=== PATIENT | male | born 1960 | race Caucasian/White ===

== ENCOUNTER 2018-12-14 11:21 | Emergency (ER) | payer MEDICARE, MEDICAID ==
[~2018-12-14] VITALS: Ht 172.7 cm; Wt 120.2 kg
[2018-12-14 11:30] VITALS: BP 129/67
--- NOTE | 2018-12-14 11:30 | NUR ---
ED Nurse Note: pt walked in to ED with spouse due to SOB for last few weeks. pt has hx of asthma. clear breathing sounds noted on upper lobes and more diminished on lower lobes. respirations even and non-labored noted. intermitten cough with yellow sputum reported. no fever or chills noted. skin warm to touch. no open wound noted. AAO x4. on installer technician. bradycardia noted. will wait for the further order.
[2018-12-14] MEDS ORDERED: Ipratropium 0.02% Inh Soln 2.5ml UD HHN ONE (11:45)
[2018-12-14] MEDS ORDERED: Solu-MEDROL 125mg Inj IVP ONE (11:45)
[2018-12-14] MEDS: Albuterol ud Inhalation HHN SCH ×2 (12:01→12:26)
--- NOTE | 2018-12-14 12:12 | NUR ---
ED Nurse Note: flu swab ua blood sent down to lab
[2018-12-14 12:27] LABS: ANION GAP 12 mmol/L (5-15); BLOOD UREA NITROGEN 15 mg/dL (7-18); CARBON DIOXIDE 23 MMOL/L (21-32); CHLORIDE 104 MMOL/L (98-107); CREATININE 1.3 MG/DL (0.55-1.30); SODIUM 139 MMOL/L (136-145)
[2018-12-14 12:38] LABS: ALANINE AMINOTRANSFERASE 44 U/L (12-78); ALBUMIN 3.7 G/DL (3.4-5.0); ALBUMIN/GLOBULIN RATIO 1.1 (1.0-2.7); ALKALINE PHOSPHATASE 37 U/L (46-116); ASPARTATE AMINO TRANSFERASE 25 U/L (15-37); BILIRUBIN,TOTAL 0.5 MG/DL (0.2-1.0); CREATINE KINASE 401 U/L (26-308)
[2018-12-14 13:05] LABS: APPEARANCE,URINE CLEAR; BILIRUBIN, URINE NEGATIVE (NEGATIVE); GLUCOSE, URINE (UA) NEGATIVE (NEGATIVE); KETONES,URINE NEGATIVE (NEGATIVE); LEUKOCYTE ESTERASE ,URINE 1+ (NEGATIVE); NITRITE,URINE NEGATIVE (NEGATIVE); PH,URINE 6 (4.5-8.0); PROTEIN,URINE NEGATIVE (NEGATIVE); UROBILINOGEN,URINE NORMAL MG/DL (0.0-1.0)
[2018-12-14 13:07] LABS: COLOR,URINE YELLOW
--- NOTE | 2018-12-14 13:23 | Emergency Room Report ---
History of Present Illness General Chief Complaint: Dyspnea/Respdistress Source: Patient Present Illness HPI Patient presents with one week of worsening dyspnea and productive cough. He denies any fevers. Is a history of asthma and has been using his inhaler at least 3-4 puffs many times at night. He usually has a nebulizer however it's not working at this time. When he got this way last year he had to be admitted to the hospital for 7 days. He has chest pain when he coughs but otherwise does not have chest pain. There is no exertional chest pain. Patient denies any orthopnea, edema or calf tenderness. He is coughing up yellow phlegm without blood No nausea vomiting diarrhea dysuria rashes headache weakness. Last seizure 5 months ago. The patient takes Dilantin. History of hypertension. On metoprolol Allergies: Coded Allergies: No Known Allergies (Unverified , 12/14/18) Patient History Past Medical History: see triage record Social History: Denies: smoking Social History Narrative Reviewed Nursing Documentation: PMH: Agreed; PSxH: Agreed Nursing Documentation-PMH Past Medical History: No History, Except For Hx Hypertension: Yes Hx Asthma: Yes Hx Seizures: Yes Review of Systems All Other Systems: negative except mentioned in HPI Physical Exam Vital Signs Date Time Temp Pulse Resp B/P (MAP) Pulse Ox O2 Delivery O2 Flow Rate FiO2 12/14/18 11:22 98.1 48 16 125/84 96 Room Air 12/14/18 11:50 21 Sp02 EP Interpretation: reviewed, normal General Appearance: well appearing, no apparent distress, GCS 15 Head: normocephalic, atraumatic Eyes: bilateral eye normal inspection, bilateral eye PERRL ENT: normal pharynx, normal voice, moist mucus membranes Neck: supple Respiratory: wheezing, expiration Cardiovascular #1: no edema, bradycardia Cardiovascular #2: 2+ radial (R) Gastrointestinal: normal inspection, normal bowel sounds, non tender, no mass, non-distended, overweight Musculoskeletal: back normal, gait/station normal, normal range of motion, no calf tenderness Neurologic: alert, oriented x3, grossly normal Psychiatric: mood/affect normal Skin: normal inspection, warm/dry Medical Decision Making Diagnostic Impression: Primary Impression: Asthma exacerbation Qualified Codes: J45.41 - Moderate persistent asthma with (acute) exacerbation Additional Impression: Bradycardia ER Course Patient presents with 1 week of worsening dyspnea. Differential includes acute myocardial infarction, congestive heart failure, pneumonia, asthmatic bronchitis amongst others. There is no evidence of pulmonary embolus at this time. Evaluation will be with EKG, chest x-ray and labs. The patient will be treated with breathing treatments, Solu Medrol and cardiac observation. EKG with bradycardia without injury. Chest x-ray no infiltrates. CBC with normal white count. CMP unremarkable. Troponin negative. Clinically patient tolerates bradycardia without difficulty. Patient is improved with treatment. Discussed bradycardia and the need to discuss this with his primary physician. Late request to check Dilantin level. Dilantin level is low. Attempt to contact patient unsuccessful due to nonworking number. Laboratory Tests Test 12/14/18 12:03 White Blood Count 7.1 K/UL (4.8-10.8) Red Blood Count 5.09 M/UL (4.70-6.10) Hemoglobin 15.0 G/DL (14.2-18.0) Hematocrit 46.0 % (42.0-52.0) Mean Corpuscular Volume 90 FL (80-99) Mean Corpuscular Hemoglobin 29.4 PG (27.0-31.0) Mean Corpuscular Hemoglobin Concent 32.6 G/DL (32.0-36.0) Red Cell Distribution Width 11.4 % (11.6-14.8) L Platelet Count 300 K/UL (150-450) Mean Platelet Volume 5.3 FL (6.5-10.1) L Neutrophils (%) (Auto) 55.4 % (45.0-75.0) Lymphocytes (%) (Auto) 33.2 % (20.0-45.0) Monocytes (%) (Auto) 8.6 % (1.0-10.0) Eosinophils (%) (Auto) 0.9 % (0.0-3.0) Basophils (%) (Auto) 1.9 % (0.0-2.0) Prothrombin Time 10.8 SEC (9.30-11.50) Prothrombin Time INR 1.0 (0.9-1.1) PTT 25 SEC (23-33) Urine Color Yellow Urine Appearance Clear Urine pH 6 (4.5-8.0) Urine Specific [place] 1.020 (1.005-1.035) Urine Protein Negative (NEGATIVE) Urine Glucose (UA) Negative (NEGATIVE) Urine Ketones Negative (NEGATIVE) Urine Blood Negative (NEGATIVE) Urine Nitrite Negative (NEGATIVE) Urine Bilirubin Negative (NEGATIVE) Urine Urobilinogen Normal MG/DL (0.0-1.0) Urine Leukocyte Esterase 1+ (NEGATIVE) H Urine RBC 0 /HPF (0 - 0) Urine WBC 0-2 /HPF (0 - 0) Urine Squamous Epithelial Cells Occasional /LPF Urine Bacteria None /HPF (NONE) Sodium Level 139 MMOL/L (136-145) Potassium Level 4.0 MMOL/L (3.5-5.1) Chloride Level 104 MMOL/L (98-107) Carbon Dioxide Level 23 MMOL/L (21-32) Anion Gap 12 mmol/L (5-15) Blood Urea Nitrogen 15 mg/dL (7-18) Creatinine 1.3 MG/DL (0.55-1.30) Estimate Glomerular Filtration Rate 56.9 mL/min (>60) Glucose Level 110 MG/DL (74-106) H Lactic Acid Level 1.20 mmol/L (0.4-2.0) Calcium Level 9.0 MG/DL (8.5-10.1) Total Bilirubin 0.5 MG/DL (0.2-1.0) Aspartate Amino Transferase (AST) 25 U/L (15-37) Alanine Aminotransferase (ALT) 44 U/L (12-78) Alkaline Phosphatase 37 U/L (46-116) L Total Creatine Kinase 401 U/L (26-308) H Troponin I 0.024 ng/mL (0.000-0.056) Pro-B-Type Natriuretic Peptide 114 pg/mL (0-125) Total Protein 7.1 G/DL (6.4-8.2) Albumin 3.7 G/DL (3.4-5.0) Globulin 3.4 g/dL Albumin/Globulin Ratio 1.1 (1.0-2.7) Microbiology Date/Time Source Procedure Growth Status 12/14/18 11:50 Nasal Nares Influenza Types A,B Antigen (EMIR) - Final Complete EKG Diagnostic Results Rate: bradycardiac ST Segments: no acute changes Rhythm Strip Diag. Results EP Interpretation: yes Rhythm: no PVC's, no ectopy, other - rate 53 Chest X-Ray Diagnostic Results Chest X-Ray Diagnostic Results : Chest X-Ray Ordered: Yes # of Views/Limited/Complete: 1 View Indication: Shortness of Breath EP Interpretation: Yes Interpretation: no consolidation, no effusion, no pneumothorax Impression: Other Electronically Signed by: Electronically signed by Clement Duffy MD Last Vital Signs Date Time Temp Pulse Resp B/P (MAP) Pulse Ox O2 Delivery O2 Flow Rate FiO2 12/14/18 14:20 98.1 58 19 145/75 97 Room Air 12/14/18 12:40 21 Status: improved Disposition: HOME, SELF-CARE Condition: Improved Scripts Nebulizer (ERAPID NEBULIZER) 1 Each Each EACH MC NEEDED PRN for Shortness of Breath, #1 Prov: Clement Duffy MD 12/14/18 Guaifenesin/Codeine Phos* (ROBITUSSIN AC*) 118 Ml Liquid 5 ML ORAL Q6H PRN for For Cough, #90 ML 0 Refills Prov: Clement Duffy MD 12/14/18 Prednisone* (PREDNISONE*) 20 Mg Tablet 40 MG ORAL DAILY, #10 TAB Prov: Clement Duffy MD 12/14/18 Albuterol Sulfate* (ALBUTEROL SULFATE HHN*) 2.5 Mg/3 Ml Vial.neb 2.5 MG HHN Q4H PRN for Shortness of Breath, #25 VIAL Prov: Clement Duffy MD 12/14/18 Albuterol Sulfate* (ALBUTEROL SULFATE MDI*) 8.5 Gm Hfa.aer.ad 2 PUFF INH Q6H, #1 EA 0 Refills Prov: Clement Duffy MD 12/14/18 Azithromycin* (ZITHROMAX*) 250 Mg Tablet 250 MG ORAL DAILY, #6 TAB 0 Refills Take two tables once daily for 1 day, then one tablet once daily for 4 days. Prov: Clement Duffy MD 12/14/18 Referrals: NON PHYSICIAN (PCP) Clement Duffy MD Dec 14, 2018 13:23
[2018-12-14 13:26] LABS: BASOPHILS % (AUTO) 1.9 % (0.0-2.0); EOSINOPHILS % (AUTO) 0.9 % (0.0-3.0); LYMPHOCYTES % (AUTO) 33.2 % (20.0-45.0); MEAN CORPUSCULAR VOLUME 90 FL (80-99); MONOCYTES % (AUTO) 8.6 % (1.0-10.0); NEUTROPHILS % (AUTO) 55.4 % (45.0-75.0); PLATELET COUNT 300 K/UL (150-450); RED BLOOD COUNT 5.09 M/UL (4.70-6.10); RED CELL DISTRIBUTION WIDTH 11.4 % (11.6-14.8); WHITE BLOOD COUNT 7.1 K/UL (4.8-10.8)
[2018-12-14] MEDS ORDERED: HYDROCHLOROTHIA50 MG ORAL (13:42)
[2018-12-14] MEDS ORDERED: METOPROLOL TAR100 MG ORAL (13:42)
[2018-12-14] MEDS ORDERED: PHENYTOIN100 MG/4 M ORAL (13:42)
[2018-12-14] MEDS ORDERED: DILANTIN100 MG ORAL (13:42)
[2018-12-14] MEDS ORDERED: LOSARTAN-HCTZ1 EACH ORAL (13:42)
[2018-12-14] MEDS ORDERED: ALBUTEROL SULF8.5 GM INH (13:54)
[2018-12-14] MEDS ORDERED: ERAPID NEBULIZ1 EACH MC (13:54)
[2018-12-14] MEDS ORDERED: ALBUTEROL2.5 MG/3 M HHN (13:54)
[2018-12-14] MEDS ORDERED: ZITHROMAX250 MG ORAL (13:54)
[2018-12-14] MEDS ORDERED: PREDNISONE20 MG ORAL (13:54)
[2018-12-14] MEDS ORDERED: GUAIFENESIN-CO118 M1 ORAL (13:54)
[2018-12-14 14:20] VITALS: BP 145/75
--- NOTE | 2018-12-14 14:22 | NUR ---
ED Nurse Note: Patient is being discharged from medical care with spouse. Awake, alert and oriented x3. All medical devices such as IV and ID band were removed. Patient ambulated out with all personal belongings with steady gait.
--- NOTE | 2018-12-15 12:00 | Diagnostic Imaging Report ---
Indication: Cough Technique: One view of the chest Comparison: none Findings: Lungs and pleural spaces are clear. Heart size is normal Impression: No acute process
== END 2018-12-14 14:23 | disposition home or self-care (01) ==
LOC: EMR 12:24
DX: J45.41 Moderate persistent asthma with (acute) exacerbation (principal); R00.1 Bradycardia, unspecified; I10 Essential (primary) hypertension
CPT/HCPCS: 36415; 71045; 80053; 80185; 81003; 82550; 83605; 83880; 84484; 85025; 85610; 85730; 86710; 93005; 94640; 94664; 96374; 99284; J2930

== ENCOUNTER 2019-11-05 04:27 | Emergency (ER) | payer MEDICARE, MEDICAID ==
[~2019-11-05] VITALS: Ht 172.7 cm; Wt 122.5 kg
[~2019-11-05 04:27] MED LIST: ALBUTEROL SULF8.5 GM INH; ALBUTEROL2.5 MG/3 M HHN; DILANTIN100 MG ORAL; ERAPID NEBULIZ1 EACH MC; GUAIFENESIN-CO118 M1 ORAL; HYDROCHLOROTHIA50 MG ORAL; LOSARTAN-HCTZ1 EACH ORAL; METOPROLOL TAR100 MG ORAL; PHENYTOIN100 MG/4 M ORAL; PREDNISONE20 MG ORAL; ZITHROMAX250 MG ORAL
--- NOTE | 2019-11-05 04:40 | NUR ---
ED Nurse Note: PT WALKED IN TO ED FOR C/O FLU LIKE S/SX. PT STATES HE HAS COUGH, NOSE CONGESTION AND CHEST CONGESTION X 3 DAYS.
[2019-11-05 05:31] VITALS: BP 150/100
--- NOTE | 2019-11-05 06:02 | NUR ---
ED Nurse Note: report given to lupe johns, endorsed care
--- NOTE | 2019-11-05 06:47 | Emergency Room Report ---
History of Present Illness General Chief Complaint: Flu Like Symptoms Source: Patient Present Illness HPI Disclaimer: Please note that this report is being documented using [employer] technology. This can lead to erroneous entry secondary to incorrect interpretation by the dictating instrument. HPI: 59-year-old male with history of seizure disorder and hypertension and mild asthma presents for evaluation of multiple complaints. He states over the past 3 or 4 days he has had diffuse myalgias, fatigue, intermittent sweats, one episode of emesis and a sore throat. He denies nasal congestion, significant cough, diarrhea or fevers but does note some chest congestion. His is sick with similar symptoms. Symptoms are improving over the past 3 days and he states that he is getting better. Did not get a flu shot this year. He has been using [id number] medications with some improvement. He came in to get checked out because he brought his in for evaluation and thought he should be evaluated too while he was here. Denies any respiratory distress, rash, headaches. PMH: Seizure disorder, hypertension, obesity, asthma PSH: None Allergies: None Social Hx: Denies smoking, drug or alcohol abuse Allergies: Coded Allergies: No Known Allergies (Unverified , 12/14/18) Nursing Documentation-PMH Past Medical History: No History, Except For Hx Hypertension: Yes Hx Asthma: Yes Hx Seizures: Yes Review of Systems All Other Systems: negative except mentioned in HPI Physical Exam Vital Signs Date Time Temp Pulse Resp B/P (MAP) Pulse Ox O2 Delivery O2 Flow Rate FiO2 11/05/19 04:36 98.1 84 17 159/104 (122) 97 Room Air General: Awake and alert, no acute distress HEENT: NC/AT. EOMI. PERRLA. Noninjected sclera. Uvula is midline. No pharyngeal edema, erythema or exudate. No airway obstruction. Neck: Supple, trachea midline, no lymphadenopathy Cardiovascular: RRR. S1 and S2 normal. No murmur appreciated Resp: Normal work of breathing. No cough, wheezing or crackles appreciated Abdomen: Abdomen is soft, nondistended. Nontender Skin: Intact. No abrasions, laceration or rash over the exposed skin MSK: Normal tone and bulk. Moving all extremities. No obvious deformity. Neuro: Awake and alert. Mentating appropriately. Medical Decision Making Diagnostic Impression: Primary Impression: Viral respiratory illness ER Course 59-year-old male presents for evaluation of constellation of symptoms consistent with a viral infection. His symptoms appear to be improving and he admits that he has been feeling better over the past few days. He arrives with stable vital signs, afebrile and breathing comfortably without any findings on physical exam. He can be discharged and follow-up with his PMD as an outpatient. We will continue symptomatic treatments. Does not require emergent labs, imaging or interventions at this time. We discussed reasons to return to the emergency department. He understands and agrees with this treatment plan and will be discharged home. Last Vital Signs Date Time Temp Pulse Resp B/P (MAP) Pulse Ox O2 Delivery O2 Flow Rate FiO2 11/05/19 05:31 98.0 84 17 150/100 97 Room Air Disposition: HOME, SELF-CARE Condition: Stable Referrals: [facility] Patient Instructions: Upper Respiratory Infection, Adult Additional Instructions: Use Tylenol Motrin as needed for fevers, aches and generalized discomfort. Drink plenty of fluids to avoid dehydration. Use your albuterol inhaler as needed. Follow-up with your doctor in 2 to 3 days for evaluation return to the emergency department any new or worsening symptoms. Melchor Duarte MD Nov 05, 2019 06:47
[2019-11-05 06:50] VITALS: BP 135/88
== END 2019-11-05 06:50 | disposition home or self-care (01) ==
LOC: EMR 06:20
DX: B34.9 Viral infection, unspecified (principal); I10 Essential (primary) hypertension; J45.909 Unspecified asthma, uncomplicated; G40.909 Epilepsy, unspecified, not intractable, without status epilepticus
CPT/HCPCS: 99281